=== PATIENT | female | born 1995 | race Caucasian/White ===

== ENCOUNTER 2017-02-22 04:54 | Emergency (ER) | payer MEDICAID ==
[~2017-02-22] VITALS: Ht 157.5 cm; Wt 67.0 kg
[~2017-02-22 04:54] MED LIST: AMO500 PO; FLUC150T17 PO; IBUP-1542 PO; METR70GE15 VAG; NAPR-260 PO
[2017-02-22 04:59] VITALS: Ht 157.5 cm; Wt 67.0 kg
[2017-02-22] MEDS ORDERED: CEFTRIAXONE 250 MG INJ IM STA (06:39)
[2017-02-22] MEDS ORDERED: AZITHROMYCIN 250 MG TAB PO STA (06:39)
[2017-02-22 06:50] LABS: URINE BLOOD (Dip) POC Trace-intact (NEGATIVE)
[2017-02-22] MEDS ORDERED: METR500T PO (07:03)
[2017-02-22] MEDS ORDERED: CEPH-443 PO (07:03)
--- NOTE | 2017-02-22 07:23 | ERD ---
ER Documentation Chief Complaint Date/Time DATE: 02/22/17 TIME: 07:19 Chief Complaint vaginal pain x 1 week HPI 21-year-old female presents with 1 week of vaginal pain and discharge. The patient also describes slight dysuria. The patient had unprotected intercourse approximately 2 weeks ago with a known partner. She denies history of STD. She has had pelvic exam in the past. She describes vaginal discomfort, slight malodorous discharge. She denies any fevers chills or flank pain. ROS All systems reviewed and are negative except as per history of present illness. Medications Home Meds Active Scripts Metronidazole* (Flagyl*) 500 Mg Tablet, 500 MG PO BID for 7 Days, TAB Prov:JOSE LUNSFORD MD 02/22/17 Cephalexin* (Keflex*) 500 Mg Capsule, 500 MG PO BID for 7 Days, CAP Prov:JOSE LUNSFORD MD 02/22/17 Naproxen* (Naprosyn*) 500 Mg Tablet, 500 MG PO BID Y for PAIN AND/OR INFLAMMATION, #30 TAB Prov:IWONA ANDERSON PA-C 05/30/16 Metronidazole* (Metrogel* Vaginal) 0.75% -70 Gram Gel.w.appl, 1 APPFUL VAG BID for 7 Days, TUB Prov:NING MONROY PA-C 04/29/16 Fluconazole* (Diflucan*) 150 Mg Tablet, 150 MG PO ONCE, #2 TAB Prov:NING MONROY PA-C 04/29/16 Amoxicillin* (Amoxicillin*) 500 Mg Cap, 500 MG PO TID for 7 Days, CAP Prov:NING MONROY PA-C 04/29/16 Amoxicillin* (Amoxicillin*) 500 Mg Cap, 500 MG PO TID for 10 Days, CAP Prov:MARY LAINEZ PA-C 03/28/16 Ibuprofen* (Motrin*) 600 Mg Tab, 600 MG PO Q6, #14 TAB Prov:MARY LAINEZ PA-C 03/28/16 Amoxicillin* (Amoxicillin*) 500 Mg Cap, 500 MG PO TID for 10 Days, CAP Prov:GARRETT LOPEZ MD 10/24/15 Ibuprofen* (Motrin*) 600 Mg Tab, 600 MG PO Q6, #14 TAB Prov:GARRETT LOPEZ MD 10/24/15 Allergies Allergies: Coded Allergies: No Known Allergy (Unverified , 04/29/16) PMhx/Soc History of Surgery: No Anesthesia Reaction: No Hx Neurological Disorder: No Hx Respiratory Disorders: No Hx Cardiac Disorders: No Hx Psychiatric Problems: No Hx Miscellaneous Medical Probl: No Hx Alcohol Use: No Hx Substance Use: No Hx Tobacco Use: No FmHx Family History: No diabetes Physical Exam Vitals Vital Signs Date Time Temp Pulse Resp B/P Pulse Ox O2 Delivery O2 Flow Rate FiO2 02/22/17 04:59 97.8 98 20 121/65 100 Physical Exam General: Well developed, well nourished, no acute distress Head: Normocephalic, atraumatic. Eyes: Pupils equally reactive, EOM intact ENT: Moist mucous membranes Neck: Supple, no lymphadenopathy Respiratory: Lungs clear bilaterally, no distress Cardiovascular: RRR, no murmurs, rubs, or gallops Abdominal: Soft, non-tender, non-distended, no peritoneal signs : External female genitalia normal appearance without lesions, internal exam was scant milky discharge, no cervical motion tenderness, no adnexal masses or fullness, buggy man exam MSK: No edema, no unilateral swelling, 5/5 strength Neurologic: Alert and oriented, moving all extremities, normal speech, no focal weakness, no cerebellar signs Skin: No rash Psych: Normal mood Results 24 hrs Laboratory Tests Test 02/22/17 06:50 Bedside Urine pH (LAB) 7.0 Bedside Urine Protein (LAB) Trace Bedside Urine Glucose (UA) Negative Bedside Urine Ketones (LAB) Negative Bedside Urine Blood Trace-intact Bedside Urine Nitrite (LAB) Negative Bedside Urine Leukocyte Esterase (L 2+ Current Medications Medications (Trade) Dose Ordered Sig/Ade Route PRN Reason Start Time Stop Time Status Last Admin Dose Admin Azithromycin (Zithromax) 1,000 mg ONCE STAT PO 02/22/17 06:39 02/22/17 06:40 DC 02/22/17 07:15 Ceftriaxone Sodium (Rocephin) 250 mg ONCE STAT IM 02/22/17 06:39 02/22/17 06:40 DC 02/22/17 07:15 Procedures/MDM The patient presents with signs and symptoms consistent with likely vaginitis or urinary tract infection. Consider sexually transmitted disease versus bacterial vaginosis. I discussed the risks, benefits, alternatives of empiric treatment of sexually transmitted disease. The patient prefers treatment. Ceftriaxone and azithromycin provided. Urine hCG is negative. Urine dip shows leukocytes. Given the patient's description empiric treatment with Keflex for urinary tract infection would be reasonable. The patient will also be treated for bacterial vaginosis with Flagyl. Patient was advised to follow-up with [facility]. She was advised to follow-up for any returning symptoms or worsening symptoms. No clinical signs or symptoms concerning for PID, TOA. No evidence of ovarian cyst or torsion. Patient is safe for discharge. An production inspector was used during her ER course We discussed follow up with the patient's primary care doctor within 24 to 48 hours as needed. We also discussed return to the emergency room for worsening symptoms or worsening condition. Outpatient referral: [facility] Discharge Medications: Keflex, Flagyl Departure Diagnosis: Primary Impression: Bacterial vaginitis Additional Impression: UTI (urinary tract infection) Urinary tract infection type: acute cystitis Hematuria presence: without hematuria Qualified Code: N30.00 - Acute cystitis without hematuria Condition: Stable Patient Instructions: Understanding Urinary Tract Infections (UTIs), Vaginal Infection: Bacterial Vaginosis [facility] Usted se prasad hecho un examen mdico de control que le indica que no est en ale condicin que requiera tratamiento urgente en el Departamento de Emergencia. Un estudio ms profundo y el tratamiento de denis condicin pueden esperar sin ningn riesgo hasta que usted sea atendida/o en el consultorio de denis mdico o ale cl cyrus. Es responsabilidad suya arreglar ale marcos para el seguimiento del elda. MANEJO DE CONDICIONES NO URGENTES EN EL FUTURO 1) Si usted tiene un mdico de atencin primaria: ted debera llamar a denis mdico de atencin primaria antes de venir al departamento de emergencia. Despus de las horas de consultorio, denis doctor o denis asociado/a est disponible por telfono. El mdico o enfermero de adali en el servicio telefnico puede asesorarle por emmy medio para atender el problema, o elda contrario se puede programar ale marcos. 2) Si usted no tiene un mdico de atencin primaria: Llame al mdico o clnica de referencia que aparece abajo gordo las horas de consultorio para hacer ale marcos para que le vean. CLINICAS: [facility] [phone] [facility] [phone] [facility] [phone] [address] [facility]. [place] [id number] [phone] [facility]. [place] [address] [phone] [facility] [phone] [address] [facility] [facility] () Usted se prasad hecho un examen mdico de control que le indica que no est en ale condicin que requiera tratamiento urgente en el Departamento de Emergencia. Un estudio ms profundo y el tratamiento de denis condicin pueden esperar sin ningn riesgo hasta que usted sea atendida/o en el consultorio de denis mdico o ale cl cyrus. Es responsabilidad suya arreglar ale marcos para el seguimiento del elda. MANEJO DE CONDICIONES NO URGENTES EN EL FUTURO 1) Si usted tiene un mdico de atencin primaria: Usted debera llamar a denis mdico de atencin primaria antes de venir al departamento de emergencia. Despus de las horas de consultorio, denis doctor o denis asociado/a est disponible por telfono. El mdico o enfermero de adali en el servicio telefnico puede asesorarle por emmy medio para atender el problema, o elda contrario se puede programar ale marcos. 2) Si usted no tiene un mdico de atencin primaria: Llame al mdico o condado institucions de referencia que aparece abajo gordo las horas de consultorio para hacer ale marcos para que le vean. SI USTED NO PUEDE PAGAR PARA SILVIA UN MEDICO puede ir a: [facility] [address] [place] [address] [facility] [address] [place] [address] [facility] [address] [place] [address] [address] [facility] [address] [place], [place] [id number] [facility] [address] [facility] [address] [place] [address] OFFICE FAX [facility] [address] [place] [address] [address] [facility]IOFORMERLY [facility] [address] [place] [address] [facility] [address] [facility] [facility] [address] [address] [facility] [address] [place] [address] [facility] [address] [place] [address] [facility] [address] - [address], [facility] [address] [address] MALIK, IRAS[place] [address] [facility] [address], [facility] [address] [address] [facility] [address] [place] [address] Additional Instructions: Llame al doctor nombrado abajo (Referral Sources) MAANA y jared ale MARCOS PARA DENTRO DE ALE SEMANA. Dgale a la secretaria que nosotros le instruimos hacer esta marcos.Avise o llame si denis condicin se empeora antes de la marcos. JOSE LUNSFORD MD Feb 22, 2017 07:23
== END 2017-02-22 07:41 | disposition home or self-care (01) ==
LOC: FTE 04:54
DX: N76.0 Acute vaginitis (principal); N30.00 Acute cystitis without hematuria
CPT/HCPCS: 81003; 87070; 87220; 87591; J0696; Z7610; 96372